=== PATIENT | male | born 1945 | race Caucasian/White ===

== ENCOUNTER 2018-06-25 11:12 | Emergency (ER) | payer MEDICARE, OTHER ==
[~2018-06-25] VITALS: Ht 170.2 cm; Wt 61.0 kg
[~2018-06-25 11:12] MED LIST: DOXA2TAB2 PO; FAMO20TA8 DT; PIRO20CA2 DT; PRAV40TA58 PO
[2018-06-25] MEDS ORDERED: ONDANSETRON HCL 4MG/2ML VIAL IV STA (11:17)
[2018-06-25] MEDS ORDERED: SODIUM CHLORIDE 0.9% 1,000 ML IV ONE (11:17)
[2018-06-25] MEDS ORDERED: KETOROLAC 30MG/ML VIAL IV STA (11:17)
[2018-06-25 12:09] LABS: HEMOGLOBIN. 13.7 g/dL (14.0-18.0); MEAN CORPUSCULAR HEMOGLOBIN 31.8 pg (28.0-32.0); MEAN CORPUSCULAR VOLUME 92.6 fL (80.0-94.0); MEAN PLATELET VOLUME 8.7 fl (7.4-10.4); PLATELET 158 x1000/uL (130-400); RED BLOOD CELL COUNT 4.31 mill/uL (4.7-6.1); RED CELL DISTRIBUTION WIDTH 14.1 % (11.6-14.6)
[2018-06-25 12:15] LABS: INR 1.1; PROTHROMBIN TIME 10.9 sec (9.4-11.6)
[2018-06-25 12:20] LABS: CHLORIDE 97 mEq/L (98-107)
[2018-06-25 13:00] LABS: PLATELET ESTIMATE NORMAL
[2018-06-25] MEDS ORDERED: LIDOCAINE HCL 2% JELLY 5ML MM ONE (14:15)
[2018-06-25 16:08] LABS: CLARITY URINE CLEAR (CLEAR); COLOR URINE YELLOW (YELLOW); KETONES URINE NEGATIVE (NEGATIVE); LEUKOCYTE ESTERASE URINE NEGATIVE (NEGATIVE); NITRITE URINE NEGATIVE (NEGATIVE); OCCULT BLOOD URINE 3+ (NEGATIVE); PH URINE 8.5 (4.5-8.0); PROTEIN URINE NEGATIVE (NEGATIVE); UROBILINOGEN URINE 0.2 E.U./dL (0.2-1.0)
[2018-06-25 16:30] VITALS: BP 135/62
== END 2018-06-25 16:42 | disposition home or self-care (01) ==
LOC: ER 12:18 → CANBEDREQ 16:28 → ER 16:42
DX: R33.9 Retention of urine, unspecified (principal); N28.9 Disorder of kidney and ureter, unspecified; E11.9 Type 2 diabetes mellitus without complications; H26.9 Unspecified cataract
CPT/HCPCS: 36415; 51702; 71045; 74176; 80053; 81003; 83690; 85025; 85610; 93005; 96361; 96374; 96375; 99285; J1885; J2405; J7030; Z7610; A4315